=== PATIENT | male | born 1955 | race American Indian/Alaskan Native ===

== ENCOUNTER 2017-03-12 09:23 | Emergency (ER) | payer BC ==
[2017-03-12] MEDS ORDERED: MORPHINE ONE ×3 (10:33→16:43)
[2017-03-12] MEDS ORDERED: ZOFRAN ONE (10:34)
[2017-03-12] MEDS ORDERED: ZOFRAN ODT ONE (10:34)
[2017-03-12] MEDS ORDERED: ZOFRAN IV ONE (10:39)
[2017-03-12] MEDS ORDERED: MORPHINE IV ONE ×3 (10:39→17:28)
[2017-03-12] MEDS ORDERED: BOOSTRIX IM ONE (10:40)
--- NOTE | 2017-03-12 11:01 | XRay Report ---
Right hand 3 views: History: Crush injury. Findings: There is bony densities noted adjacent to the greater multangular at the base of the first metacarpal. This could be from recent or old injury or arthritic changes. Arthritic changes also noted in the first carpometacarpal joint and metacarpophalangeal joint and interphalangeal joint second, third, fourth and fifth finger. No periosteal reaction. Impression: Findings as detailed above. Clinical correlation is advised.
[2017-03-12 11:11] LABS: Basophils % (Auto) 0.5 % (0.0-1.8); Eosinophils % (Auto) 0.9 % (0.0-4.3); Mean Corpuscular HGB Conc 30 % (32-34); Platelet Count 274 K/mm3 (140-440); Red Blood Count 5.18 M/mm3 (3.65-5.03); White Blood Count 9.5 K/mm3 (4.5-11.0)
[2017-03-12 11:13] LABS: Hematocrit 33.5 % (35.5-45.6); Hemoglobin 9.9 gm/dl (11.8-15.2); Mean Corpuscular Hemoglobin 19 pg (28-32); Mean Corpuscular Volume 65 fl (84-94); Red Cell Distribution Width 22.2 % (13.2-15.2)
[2017-03-12 11:31] LABS: Creatine Kinase MB 5.1 ng/mL (0.0-4.0)
[2017-03-12 11:32] LABS: Anion Gap 17 mmol/L; Blood Urea Nitrogen 12 mg/dL (9-20); Calcium 9.5 mg/dL (8.4-10.2); Carbon Dioxide 27 mmol/L (22-30); Chloride 102.1 mmol/L (98-107); Creatine Kinase 312 units/L (55-170); Glucose 88 mg/dL (75-100); Potassium 3.9 mmol/L (3.6-5.0); Sodium 142 mmol/L (137-145)
--- NOTE | 2017-03-12 14:37 | Emergency Department Report ---
ED General Adult HPI - General Chief complaint: Extremity Injury, Upper Stated complaint: TRAILER FELL/ SMASHED IS R HAND Time Seen by Provider: 03/12/17 10:38 Source: patient Mode of arrival: Ambulatory Limitations: No Limitations - History of Present Illness Initial comments: Prior to arrival the patient lost control of a lucero. The trailer came down upon his right hand. He states that he was unable to extricate his hand for "5 minutes". He does not report any paresthesias or numbness of his fingers. He states he can move his fingers normally. His hand is moderately swollen at the time of my initial exam. He reports no other injury. There is moderate pain diffusely. -: Sudden, hour(s) Location: right (hand) Radiation: non-radiation Quality: aching Consistency: constant Improves with: none Worsens with: none Associated Symptoms: denies other symptoms - Related Data Allergies Allergy/AdvReac Type Severity Reaction Status Date / Time No Known Allergies Allergy Unverified 03/12/17 10:14 ED Review of Systems ROS: Stated complaint: TRAILER FELL/ SMASHED IS R HAND Other details as noted in HPI Constitutional: denies: chills, fever Eyes: denies: eye pain, eye discharge, vision change ENT: denies: ear pain, throat pain Respiratory: denies: cough, shortness of breath, wheezing Cardiovascular: denies: chest pain, palpitations Endocrine: no symptoms reported Gastrointestinal: denies: abdominal pain, nausea, diarrhea Genitourinary: denies: urgency, dysuria Musculoskeletal: as per HPI. denies: back pain Skin: denies: rash, lesions Neurological: denies: headache, weakness, paresthesias Psychiatric: denies: anxiety, depression Hematological/Lymphatic: denies: easy bleeding, easy bruising ED Past Medical Hx - Past Medical History Hx Hypertension: Yes - Surgical History Additional Surgical History: MASS REMOVED FROM COLON - Social History Smoking Status: Current Every Day Smoker Substance Use Type: None ED Physical Exam - General Limitations: No Limitations General appearance: alert, in no apparent distress - Head Head exam: Present: atraumatic, normocephalic - Eye Eye exam: Present: normal appearance. Absent: scleral icterus - ENT ENT exam: Present: mucous membranes moist - Neck Neck exam: Present: normal inspection - Respiratory Respiratory exam: Present: normal lung sounds bilaterally. Absent: respiratory distress - Cardiovascular Cardiovascular Exam: Present: regular rate, normal rhythm. Absent: systolic murmur, diastolic murmur, rubs, gallop - GI/Abdominal GI/Abdominal exam: Present: soft, normal bowel sounds. Absent: distended, tenderness, guarding, rebound - Rectal Rectal exam: Present: deferred - Extremities Exam Extremities exam: Present: normal capillary refill, other (there is a 2 cm flap laceration with exposed subcutaneous fat of the hypothenar eminence. There is diffuse and moderate swelling of the hand which extends wrist. The compartments are not tight. Neurovascular exam is intact.) - Back Exam Back exam: Present: normal inspection - Neurological Exam Neurological exam: Present: alert, oriented X3, CN II-XII intact. Absent: motor sensory deficit - Psychiatric Psychiatric exam: Present: normal affect, normal mood - Skin Skin exam: Present: warm, dry, normal color, other (other abrasions noted of the hand and the hypothenar laceration). Absent: rash ED Course Vital Signs 03/12/17 03/12/17 03/12/17 10:06 10:54 13:44 Temperature 98.1 F Pulse Rate 83 71 Respiratory 17 20 20 Rate Blood Pressure 208/121 Blood Pressure 169/103 [Left] O2 Sat by Pulse 96 90 Oximetry - Reevaluation(s) Reevaluation #1: I elected not to suture the wound. It was evident that this was a crush injury and I needed to ascertain whether swelling was progressive. The patient was observed in the emergency department. His hand did continue to swell despite elevation and ice. Therefore, I decided to transfer the patient for evaluation by a hand surgeon. The orthopedic physicians at this facility do not operate on hands. I spoke with Dr. Chloe Ballesteros who was engineering manager electronics for [employer]. She agreed that the patient could be transferred to [facility] for evaluation. The patient remained neurovascular intact. He had no paresthesias here either. 03/12/17 14:46 03/12/17 14:52 ED Medical Decision Making - Lab Data Result diagrams: 03/12/17 10:56 03/12/17 10:56 Laboratory Results - last 24 hr 03/12/17 03/12/17 10:56 10:56 WBC 9.5 RBC 5.18 H Hgb 9.9 L Hct 33.5 L MCV 65 L MCH 19 L MCHC 30 L RDW 22.2 H Plt Count 274 Lymph % (Auto) 7.0 L Brown % (Auto) 6.1 Eos % (Auto) 0.9 Baso % (Auto) 0.5 Lymph # 0.7 L Brown # 0.6 Eos # 0.1 Baso # 0.1 Seg Neutrophils % 85.5 H Seg Neutrophils # 8.1 H Sodium 142 Potassium 3.9 Chloride 102.1 Carbon Dioxide 27 Anion Gap 17 BUN 12 Creatinine 1.0 Estimated GFR > 60 BUN/Creatinine Ratio 12.00 Glucose 88 Calcium 9.5 Total Creatine Kinase 312 H CK-MB (CK-2) 5.1 H CK-MB (CK-2) Rel Index 1.6 - Radiology Data interpreted by me: Hand x-ray shows some spiculation of bone about the greater multangular/first metacarpal area. There are also degenerative changes. There is no gross ecchymosis of other fracture. I suspect that the spiculation of bone may be secondary to crush injury with osseous involvement however. Critical care attestation.: If time is entered above; I have spent that time in minutes in the direct care of this critically ill patient, excluding procedure time. ED Disposition Clinical Impression: Crushing injury of hand, right Qualifiers: Encounter type: initial encounter Qualified Code(s): S67.21XA - Crushing injury of right hand, initial encounter Laceration of hand Qualifiers: Encounter type: initial encounter Laterality: right Qualified Code(s): S61.411A - Laceration without foreign body of right hand, initial encounter Hypertension Qualifiers: Hypertension type: essential hypertension Qualified Code(s): I10 - Essential ( primary) hypertension Anemia Qualifiers: Anemia type: unspecified type Qualified Code(s): D64.9 - Anemia, unspecified Disposition: DC/TX ANOTHER TYPE HEALTHCARE Is pt being admited?: No Does the pt Need Aspirin: No Condition: Stable Instructions: Hypertension (ED), Laceration (ED) Time of Disposition: 14:52
[2017-03-12 17:00] VITALS: BP 163/97
== END 2017-03-12 17:37 | disposition other institution (70) ==
LOC: ED 09:23
DX: S67.21XA Crushing injury of right hand, initial encounter (principal); S61.411A Laceration without foreign body of right hand, initial encounter; I10 Essential (primary) hypertension; D64.9 Anemia, unspecified; F17.200 Nicotine dependence, unspecified, uncomplicated; X58.XXXA Exposure to other specified factors, initial encounter; Y93.9 Activity, unspecified; Y92.9 Unspecified place or not applicable; Y99.9 Unspecified external cause status
CPT/HCPCS: 36415; 73130; 80048; 82550; 82553; 85025; 90471; 90715; 96374; 96375; 96376; 99285; J2270; J2405; Q0162